=== PATIENT | male | born 1975 | race Caucasian/White ===

== ENCOUNTER 2017-03-21 00:01 | Emergency (ER) | payer SELFPAY ==
[~2017-03-21] VITALS: Ht 170.2 cm; Wt 71.7 kg
[2017-03-21 00:10] VITALS: BP 128/88
--- NOTE | 2017-03-21 01:30 | NUR ---
PATIENT AMBULATED TO ER BED 8.
--- NOTE | 2017-03-21 01:45 | NUR ---
PATIENT BEING EVALUATED BY DR. HICKS.
[2017-03-21] MEDS ORDERED: AZITHROMYCIN 250 MG TAB PO ONE (02:05)
[2017-03-21] MEDS ORDERED: cefTRIAXone 250 MG in LIDOCAINE 1% ED 0.9 ML IM ONE (02:05)
[2017-03-21 02:50] VITALS: BP 117/73
--- NOTE | 2017-03-21 02:50 | NUR ---
Patient discharged with v/s stable. Written and verbal after care instructions given and explained. Patient verbalized understanding. Ambulatory with steady gait. All questions addressed prior to discharge. Advised to follow up with PMD.
[2017-03-21 03:49] LABS: APPEARANCE,URINE CLOUDY (CLEAR); BILIRUBIN,URINE NEGATIVE (NEGATIVE); BLOOD, URINE 1+ (NEGATIVE); COLOR,URINE YELLOW (YELLOW); LEUKOCYTE ESTERASE ,URINE 1+ (NEGATIVE); NITRITE, URINE NEGATIVE (NEGATIVE); PROTEIN,URINE 1+ (NEGATIVE); UGLUCOSE NEGATIVE (NEGATIVE); UROBILINOGEN,URINE 0.2 EU/dL (0.2 - 1)
[2017-03-21 03:59] LABS: RBC,URINE 3-10 (FEW) /HPF (0-5)
[2017-03-21 04:00] LABS: BACTERIA,URINE OCCASSIONAL /HPF (None Seen); SQUAMOUS EPITHELIAL CELL,UR 0-3 (FEW) /LPF (0-3 (FEW)); WBC,URINE TOO MANY TO COUNT /HPF (0-5)
[2017-03-25 06:21] LABS: CHLAMYDIA TRACHOMATIS AMP DNA Negative (Negative)
--- NOTE | 2017-03-25 08:15 | NUR ---
addendum:patient positive neisseria gonorrhea.patient given rocephin 250mg. im and azithromycin 1000 mg. po in er as per dr. barrios note.no prescription given. referred to dr. mart,no farther treatment needed. copy will be given to kenia,infection control.
== END 2017-03-21 02:50 | disposition home or self-care (01) ==
LOC: MED 00:01
DX: N34.2 Other urethritis (principal); F17.200 Nicotine dependence, unspecified, uncomplicated; F19.90 Other psychoactive substance use, unspecified, uncomplicated
CPT/HCPCS: 36415; 81001; 87086; 96372; 99284; J0696; J2001; 87491